=== PATIENT | male | born 1975 | race Hispanic/Latino ===

== ENCOUNTER → 2024-01-22 | Day surgery (SDC) | payer OTHER ==
[2024-01-20 14:59] LABS: BASOPHILS # (AUTO) 0.1 (0.0-0.1); BASOPHILS % 0.5 % (0.0-1.0); EOSINOPHILS # (AUTO) 0.2 (0.0-0.4); HEMOGLOBIN 14.3 g/dL (14.0-18.0); LYMPHOCYTES # (AUTO) 2.7 (1.0-3.2); LYMPHOCYTES % 26.4 % (18.0-39.1); MEAN CORPUSCULAR HEMOGLOBIN 30.8 pg (28-32); MEAN CORPUSCULAR HGB CONC 33.3 g/dL (31-35); MEAN CORPUSCULAR VOLUME 92.5 fL (81-99); MONOCYTES # (AUTO) 1.1 (0.2-0.8); MONOCYTES % 10.8 % (4.4-11.3); NEUTROPHILS # (AUTO) 6.2 (2.1-6.9); NEUTROPHILS % 60.1 % (38.7-80.0); PLATELET COUNT 216 x10e3/uL (140-360); RED BLOOD COUNT 4.65 x10e6/uL (4.3-5.7); RED CELL DISTRIBUTION WIDTH 13.1 % (11.7-14.4); WHITE BLOOD COUNT 10.27 x10e3/uL (4.8-10.8)
[~2024-01-22] MED LIST: ATORVASTATIN CA10 MG PO; BENZOCAINE/TETRACAINE/BUTAMBEN AERO SPRAY 56 GM CAN ONE; GLUCAGON FOR INJ 1 MG VIAL ONE; HYOSCYAMINE SULFATE 0.5 MG/ML INJ ONE; KETAMINE 50MG/5ML SYR ONE; LEVOTHYROXINE75 MCG PO; LIDOCAINE HCL 2% LOCAL INJ 5 ML SDV VIAL INJ ONE; LISINOPRIL-HCT1 EAC1 PO; METFORMIN HCL500 M2 PO; POTASSIUM CHLO10 ME1 PO; PROPOFOL IV EMULSION 10 MG/ML 20 ML VIAL ONE; PROPOFOL IV EMULSION 10 MG/ML 50 ML VIAL IV ONE
[2024-01-22] MEDS: LACTATED RINGER'S 1,000 ML ONE (12:29)
[2024-01-22 16:14] VITALS: TEMP 97
[2024-01-22 16:45] VITALS: BP 146/81; PULSE 74; RESP 18; O2SAT 96
== END | disposition home or self-care (01) ==
LOC: OR 12:22
PROVIDERS: ATTEND Internal Medicine Gastroenterology
DX: Z12.11 Encounter for screening for malignant neoplasm of colon (principal); D12.2 Benign neoplasm of ascending colon; K57.30 Diverticulosis of large intestine without perforation or abscess without bleeding; K64.8 Other hemorrhoids; K21.9 Gastro-esophageal reflux disease without esophagitis; K29.50 Unspecified chronic gastritis without bleeding; K22.10 Ulcer of esophagus without bleeding; K31.A14 Gastric intestinal metaplasia without dysplasia, involving the cardia; K44.9 Diaphragmatic hernia without obstruction or gangrene; I10 Essential (primary) hypertension; E78.5 Hyperlipidemia, unspecified; E03.9 Hypothyroidism, unspecified; E11.9 Type 2 diabetes mellitus without complications; Z79.84 Long term (current) use of oral hypoglycemic drugs; E66.01 Morbid (severe) obesity due to excess calories; Z68.35 Body mass index [BMI] 35.0-35.9, adult; Z71.3 Dietary counseling and surveillance; Z01.810 Encounter for preprocedural cardiovascular examination; Z01.812 Encounter for preprocedural laboratory examination; Z79.899 Other long term (current) drug therapy
CPT/HCPCS: 36415; 43239; 45385; 85025; 93005; J1610; J1980; J2001; J2470; J2704 ×2; J7121; 45378